=== PATIENT | male | born 1955 | race Caucasian/White ===

== ENCOUNTER 2017-07-24 22:34 | Emergency (ER) | payer OTHER ==
[~2017-07-24] VITALS: Ht 172.7 cm; Wt 82.0 kg
[~2017-07-24 22:34] MED LIST: CETI5SOL PO; EXCETAB; FOLI1 PO; LISI-363 PO; METO25 PO; OMEP20TA PO; SIMV20 PO; SODIPAK2; SULF500T35 PO; SUMA50 PO
[2017-07-24 22:37] VITALS: BP 205/84; PULSE 62; RESP 20; TEMP 97.9; O2SAT 100
[2017-07-24] MEDS ORDERED: SIMV20TA PO (22:46)
[2017-07-24] MEDS ORDERED: OMEP20CA2 PO (22:46)
[2017-07-24] MEDS ORDERED: SODIUM CHLOR 0.9% 1000 ML INJ 1,000 ML IV ONE (22:46)
[2017-07-24] MEDS ORDERED: SULF500T3 PO (22:46)
[2017-07-24] MEDS ORDERED: LISI-515 PO (22:46)
[2017-07-24] MEDS ORDERED: SUMA100T2 PO (22:46)
[2017-07-24] MEDS ORDERED: FOLI800T PO (22:46)
--- NOTE | 2017-07-24 22:51 | PD ---
HPI Chief Complaint: Neuro Symptoms/ Deficits Time Seen by Provider: 22:45 Travel History International Travel<30 days: No Contact w/Intl Traveler<30days: No Traveled to known affect area: No History of Present Illness HPI The patient 62 years old and arrives to the ER with sudden onset right eye blindness. He has a history of decreased visual acuity on the right side and 1 hour prior to ER arrival experienced sudden visual loss. Vision loss painless. He has never had similar symptoms. 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 He has had no temporal cephalgia claudication rash or symptoms consistent with giant cell arteritis. He describes loss of vision as a sudden darkness involving the [id number] on the right side. No other weakness reported. Left eye visual acuity is affected. Patient has no other neurologic complaints offered. He reports a history of "fluttering" in chest and has undergone coronary catheterization in addition to other evaluations however as of yet has not been diagnosed with arrhythmia or heart disease otherwise. PFSH Past Medical History Cardiac Catheterization: Yes Cardiovascular Problems: Yes (HEART FLUTTERING) Hypertension: Yes Migraines: Yes Triglycerides - High: Yes Influenza Vaccination: No Past Surgical History Tonsillectomy: Yes Social History Alcohol Use: Yes (OCCASIONALLY) Tobacco Use: No Substance Use: No Allergies-Medications (Allergen,Severity, Reaction): Coded Allergies: No Known Allergies (Unverified , 09/09/15) Reported Meds & Prescriptions Reported Meds & Active Scripts Active Reported Sumatriptan (Sumatriptan Succinate) 100 Mg Tab 100 Mg PO ONCE PRN If a satisfactory response has not been obtained at 2 hours, a second dose may be administered Folic Acid 0.8 Mg Tab 1,000 Mcg PO DAILY Sulfasalazine 500 Mg Tab 500 Mg PO Q8H Lisinopril 20 Mg Tab 20 Mg PO DAILY Simvastatin 20 Mg Tab 20 Mg PO DAILY Omeprazole 20 Mg Cap 20 Mg PO DAILY Review of Systems Except as stated in HPI: all other systems reviewed are Neg Physical Exam Narrative GENERAL: 62-year-old male well-nourished well-developed mildly anxious Vital Signs Date Time Temp Pulse Resp B/P (MAP) Pulse Ox O2 Delivery O2 Flow Rate FiO2 07/25/17 01:26 07/24/17 23:07 69 17 150/72 (98) 100 2.00 07/24/17 23:00 100 2.00 07/24/17 23:00 100 2.00 07/24/17 22:49 99 Room Air 07/24/17 22:37 97.9 62 20 205/84 (124) 100 SKIN: Warm and dry. HEAD: Atraumatic. Normocephalic. EYES: Visual acuity in the right side is absent. The patient cannot count fingers. Left eye visual acuity is normal. Pupils are equal round reactive to light. Upon funduscopic evaluation of the right either appears to be some findings potentially consistent with central retinal artery occlusion. Disconjugate gaze observed. ENT: No nasal bleeding or discharge. Mucous membranes pink and moist. NECK: Trachea midline. No JVD. CARDIOVASCULAR: Regular rate and rhythm. RESPIRATORY: No accessory muscle use. Clear to auscultation. Breath sounds equal bilaterally. GASTROINTESTINAL: Abdomen soft, non-tender, nondistended. Hepatic and splenic margins not palpable. MUSCULOSKELETAL: Extremities without clubbing, cyanosis, or edema. No obvious deformities. NEUROLOGICAL: Speech memory mentation mentation normal. Cranial nerves II through XII normal. Pupils equal round reactive to light. Disconjugate gaze noted. Motor function normal in the upper and lower extremities. PSYCHIATRIC: Appropriate mood and affect; insight and judgment normal. Data Data Last Documented VS Vital Signs Date Time Temp Pulse Resp B/P (MAP) Pulse Ox O2 Delivery O2 Flow Rate FiO2 07/25/17 01:26 07/24/17 23:07 69 17 100 2.00 07/24/17 22:49 Room Air 07/24/17 22:37 97.9 Orders Orders Activity Bed Rest (07/24/17 ) Electrocardiogram (07/24/17 ) I-Stat Profile (07/24/17 22:46) Prothrombin Time / Inr (Pt) (07/24/17 22:46) Act Partial Throm Time (Ptt) (07/24/17 22:46) Complete Blood Count With Diff (07/24/17 22:46) Fibrinogen (07/24/17 22:46) Creatine Kinase (Cpk) (07/24/17 22:46) Troponin I (07/24/17 22:46) Ua Includes Microscopic (07/24/17 22:46) Drug Screen, Random Urine (07/24/17 22:46) Type And Screen (07/24/17 22:46) Ct Brain W/O Iv Contrast(Rout) (07/24/17 ) Consult Neurology (07/24/17 ) Blood Glucose (07/24/17 22:46) Ecg Monitoring (07/24/17 22:46) Neuro Checks Q2HX12,Q4H (07/24/17 22:46) Nursing Bedside Swallow Assess .ONCE (07/24/17 22:46) Iv Access Insert/Monitor (07/24/17 22:46) NPO (07/24/17 22:46) Oximetry (07/24/17 22:46) Resp Oxygen Nc Stroke (07/24/17 ) Sodium Chlor 0.9% 1000 Ml Inj (Ns 1000 M (07/24/17 22:46) Cath For Specimen (07/24/17 22:46) (Hub Use Only)Inp Phy Cons/Ref (07/24/17 ) Westergren Sedimentation Rate (07/24/17 22:57) C-Reactive Protein (Crp) (07/24/17 22:57) Ed Discharge Order (07/25/17 00:57) Labs Laboratory Tests Test 07/24/17 22:50 07/24/17 22:54 07/24/17 23:00 Erythrocyte Sedimentation Rate 9 mm/hr White Blood Count 8.7 TH/MM3 Red Blood Count 4.41 MIL/MM3 Hemoglobin 12.6 GM/DL Bedside Hemoglobin 12.6 G/DL Hematocrit 38.6 % Bedside Hematocrit 37.0 % Mean Corpuscular Volume 87.5 FL Mean Corpuscular Hemoglobin 28.6 PG Mean Corpuscular Hemoglobin Concent 32.6 % Red Cell Distribution Width 15.2 % Platelet Count 278 TH/MM3 Mean Platelet Volume 8.8 FL Neutrophils (%) (Auto) 52.3 % Lymphocytes (%) (Auto) 33.2 % Monocytes (%) (Auto) 11.0 % Eosinophils (%) (Auto) 2.4 % Basophils (%) (Auto) 1.1 % Neutrophils # (Auto) 4.6 TH/MM3 Lymphocytes # (Auto) 2.9 TH/MM3 Monocytes # (Auto) 1.0 TH/MM3 Eosinophils # (Auto) 0.2 TH/MM3 Basophils # (Auto) 0.1 TH/MM3 CBC Comment DIFF FINAL Differential Comment Prothrombin Time 10.4 SEC Prothromb Time International Ratio 1.0 RATIO Activated Partial Thromboplast Time 26.0 SEC Fibrinogen 278 mg/dL Bedside Sodium 140 MMOL/L Bedside Potassium 3.8 MMOL/L Bedside Chloride 102 MMOL/L Bedside Blood Urea Nitrogen 23 MG/DL Bedside Creatinine 1.2 MG/DL Bedside Glucose 100 MG/DL Total Creatine Kinase 125 U/L Troponin I LESS THAN 0.02 NG/ML C-Reactive Protein LESS THAN 0.29 MG/DL Urine Color YELLOW Urine Turbidity CLEAR Urine pH 6.0 Urine Specific Watts 1.005 Urine Protein NEG mg/dL Urine Glucose (UA) NEG mg/dL Urine Ketones NEG mg/dL Urine Occult Blood NEG Urine Nitrite NEG Urine Bilirubin NEG Urine Urobilinogen LESS THAN 2.0 MG/DL Urine Leukocyte Esterase NEG Urine RBC LESS THAN 1 /hpf Urine WBC LESS THAN 1 /hpf Urine Opiates Screen NEG Urine Barbiturates Screen NEG Urine Amphetamines Screen NEG Urine Benzodiazepines Screen NEG Urine Cocaine Screen NEG Urine Cannabinoids Screen NEG MDM Medical Screen Exam Complete: Yes Emergency Medical Condition: Yes Differential Diagnosis Retinal injury, stroke, central retinal artery occlusion, central retinal vein occlusion Narrative Course Case discussed with neurology and ophthalmology. 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 No evidence of giant cell arteritis. CBC & BMP Diagram 07/24/17 22:[address] 07/24/17 0000 Signed Impressions: Service Date/Time: Monday, July 24, 2017 22:56 - CONCLUSION: No acute disease. Peter Watson Jr., MD point of CARE electrolytes are essentially unremarkable The C-reactive protein is less than 0.29 ESR is 9 Urinalysis shows no UTI EKG shows sinus rhythm with no ischemic injury pattern preexcitation pattern Patient will be discharged plan to follow with Dr. Perez tomorrow. He reports a return of visual acuity about 45 minutes after ER arrival. Critical Care Narrative Aggregate critical care time was 35 minutes. Time to perform other separately billable procedures was not included in the critical care time. My time did not include minutes spent treating any other patients simultaneously or on activities that did not directly contribute to the patient's treatment. The services I provided to this patient were to treat and/or prevent clinically significant deterioration that could result in: Permanent vision loss, permanent neurologic deficit I provided critical care services requiring my management, as noted below: Chart data review, documentation time, medication orders and management, vital sign assessments/reviewing monitor data, ordering and reviewing lab tests, ordering and interpreting/reviewing x-rays and diagnostic studies, care of the patient and discussion of the patient with the admitting physicians. Stroke Alert NIHSS NIH Stroke Scale Result: 1 NIHSS Time Completed: 22:46 Thrombolytic Contraindications Contraindications: Refusal of Treatment Diagnosis Diagnosis: Primary Impression: Transient visual loss of right eye Referrals: Maira Perez MD 1 day Med/Other Pt SpecificInfo: No Change to Meds Disposition: 01 DISCHARGE HOME Condition: Stable Greg Boss MD Jul 24, 2017 22:51
[2017-07-24 23:00] VITALS: O2SAT 100
[2017-07-24 23:06] LABS: AUTOMATED NEUTROPHIL # 4.6 TH/MM3 (1.8-7.7); BASOPHIL # 0.1 TH/MM3 (0-0.2); BASOPHIL % 1.1 % (0.0-2.0); EOSINOPHIL # 0.2 TH/MM3 (0-0.4); EOSINOPHIL % 2.4 % (0.0-4.0); HEMATOCRIT 38.6 % (39.0-51.0); HEMOGLOBIN 12.6 GM/DL (13.0-17.0); LYMPH % 33.2 % (9.0-44.0); LYMPHOCYTE # 2.9 TH/MM3 (1.0-4.8); MEAN CELL VOLUME 87.5 FL (80.0-100.0); MEAN CORPUSCULAR HEMOGLOBIN 28.6 PG (27.0-34.0); MEAN CORPUSCULAR HGB CONC 32.6 % (32.0-36.0); MEAN PLATELET VOLUME 8.8 FL (7.0-11.0); NEUT % 52.3 % (16.0-70.0); PLATELET COUNT 278 TH/MM3 (150-450); RED BLOOD COUNT 4.41 MIL/MM3 (4.50-5.90); RED CELL DISTRIBUTION WIDTH 15.2 % (11.6-17.2); WHITE BLOOD COUNT 8.7 TH/MM3 (4.0-11.0)
[2017-07-24 23:07] VITALS: BP 150/72; PULSE 69; RESP 17; O2SAT 100
--- NOTE | 2017-07-24 23:07 | RADRPT ---
EXAM DATE/TIME: 07/24/2017 22:56 [facility] COMPARISON: No previous studies available for comparison. INDICATIONS : Stroke alert; right side vision changes for one hour. RADIATION DOSE: 64.63 CTDIvol (mGy) This report was called by Dr Watson to Dr Boss at 2305 MEDICAL HISTORY : Hypertension. Cardiovascular disease SURGICAL HISTORY : None. ENCOUNTER: Initial ACUITY: 1 day PAIN SCALE: 0/10 LOCATION: cranial TECHNIQUE: Multiple contiguous axial images were obtained of the head. Using automated exposure control and adj ustment of the mA and/or kV according to patient size, radiation dose was kept as low as reasonably a chievable to obtain optimal diagnostic quality images. DICOM format image data is available electro nically for review and comparison. FINDINGS: CEREBRUM: The ventricles are normal for age. No evidence of midline shift, mass lesion, hemorrhage or acute in farction. No extra-axial fluid collections are seen. POSTERIOR FOSSA: The cerebellum and brainstem are intact. The 4th ventricle is midline. The cerebellopontine angle i s unremarkable. EXTRACRANIAL: The visualized portion of the orbits is intact. SKULL: The calvaria is intact. No evidence of skull fracture. CONCLUSION: No acute disease. Peter Watson Jr., MD on July 24, 2017 at 23:04 Board Certified Radiologist. This report was verified electronically.
[2017-07-24 23:14] LABS: PROTHROMBIN TIME - PATIENT 10.4 SEC (9.8-11.6)
[2017-07-24 23:23] LABS: TROPONIN I LESS THAN 0.02 NG/ML (0.02-0.05)
[2017-07-24 23:45] LABS: BILIRUBIN, URINE NEG (NEG); BLOOD, URINE NEG (NEG); GLUCOSE,URINE NEG (NEG); KETONE, URINE NEG (NEG); NITRITE,URINE NEG (NEG); URINE COLOR YELLOW (YELLW/STRAW); URINE LEUKOCYTE ESTERASE NEG (NEG)
--- NOTE | 2017-07-25 23:31 | EKG ---
Date Performed: 07/24/2017 Time Performed: 22:37:13 PTAGE: 62 years EKG: Sinus rhythm BORDERLINE LEFT AXIS DEVIATION BORDERLINE ECG NO PREVIOUS TRACING DOCTOR: Harry Duran Interpretating Date/Time 07/25/2017 23:28:04
== END 2017-07-25 01:42 | disposition home or self-care (01) ==
LOC: NEPC 22:34
DX: H53.121 Transient visual loss, right eye (principal); I10 Essential (primary) hypertension; Z79.899 Other long term (current) drug therapy
CPT/HCPCS: 70450; 80048; 80307; 81001; 82550; 84484; 85025; 85384; 85610; 85652; 85730; 86140; 86850; 86900; 86901; 93005; 99291; J7030

== ENCOUNTER 2017-08-15 17:51 | Emergency (ER) | payer OTHER ==
[~2017-08-15] VITALS: Ht 172.7 cm; Wt 81.8 kg
[~2017-08-15 17:51] MED LIST changes: -CETI5SOL PO; -EXCETAB; -FOLI1 PO; +FOLI800T PO; -LISI-363 PO; +LISI-515 PO; -METO25 PO; +OMEP20CA2 PO; -OMEP20TA PO; -SIMV20 PO; +SIMV20TA PO; -SODIPAK2; +SULF500T3 PO; -SULF500T35 PO; +SUMA100T2 PO; -SUMA50 PO
--- NOTE | 2017-08-15 18:20 | PD ---
HPI Chief Complaint: palpitations Time Seen by Provider: 18:19 Travel History International Travel<30 days: No Contact w/Intl Traveler<30days: No Traveled to known affect area: No History of Present Illness HPI 62-year-old male presents emergency department for evaluation of palpitations. Patient is currently under the care of analytical chemist Dr. Damon. He is in an event monitor and has been for the last 2 weeks. Patient states that he gets palpitations and feels like his heart is racing frequently. When this happens sometimes he gets a little lightheaded or nauseous. But it is short lived and the patient is able to go on about his stay. Patient was here in the hospital approximately 2 weeks ago following an incident where he lost vision in his right eye but this resolved on its own. Patient states today he began having a racing heartbeat and feeling palpitations. He thinks it lasted for the duration of clinical program consultant duty which is about 30 minutes. He states during that time he felt like maybe he was losing vision in his right eye, but this also resolved. He denies any other focal deficits weakness. No nausea vomiting. No pain. No other symptoms to report. He is currently having no symptoms at all. PFSH Past Medical History Cardiac Catheterization: Yes Cardiovascular Problems: Yes (HEART FLUTTERING) Gastrointestinal Disorders: Yes (COLITIS) Hypertension: Yes Migraines: Yes Triglycerides - High: Yes Past Surgical History Tonsillectomy: Yes Social History Alcohol Use: Yes (OCCASIONALLY) Tobacco Use: No Substance Use: No Allergies-Medications (Allergen,Severity, Reaction): Coded Allergies: No Known Allergies (Verified Adverse Reaction, Unknown, 08/15/17) Reported Meds & Prescriptions Reported Meds & Active Scripts Active Reported Sumatriptan (Sumatriptan Succinate) 100 Mg Tab 100 Mg PO ONCE PRN If a satisfactory response has not been obtained at 2 hours, a second dose may be administered Folic Acid 0.8 Mg Tab 1,000 Mcg PO DAILY Sulfasalazine 500 Mg Tab 500 Mg PO Q8H Lisinopril 20 Mg Tab 20 Mg PO DAILY Simvastatin 20 Mg Tab 20 Mg PO DAILY Omeprazole 20 Mg Cap 20 Mg PO DAILY Review of Systems Except as stated in HPI: all other systems reviewed are Neg Physical Exam Narrative GENERAL: Well-nourished male patient, in no acute distress. SKIN: Focused skin assessment warm/dry. HEAD: Atraumatic. Normocephalic. EYES: Pupils equal and round. No scleral icterus. No injection or drainage. ENT: No nasal bleeding or discharge. Mucous membranes pink and moist. NECK: Trachea midline. No JVD. CARDIOVASCULAR: Regular rate and rhythm. RESPIRATORY: No accessory muscle use. Clear to auscultation. Breath sounds equal bilaterally. GASTROINTESTINAL: Abdomen soft, non-tender, nondistended. Hepatic and splenic margins not palpable. MUSCULOSKELETAL: No obvious deformities. No clubbing. No cyanosis. No edema. NEUROLOGICAL: Awake and alert. No obvious cranial nerve deficits. Motor grossly within normal limits. Normal speech. PSYCHIATRIC: Appropriate mood and affect; insight and judgment normal. Data Data Last Documented VS Vital Signs Date Time Temp Pulse Resp B/P (MAP) Pulse Ox O2 Delivery O2 Flow Rate FiO2 08/15/17 20:50 78 20 98 08/15/17 18:37 Room Air 08/15/17 18:25 98.0 138/84 (102) Orders Orders Electrocardiogram (08/15/17 18:19) Basic Metabolic Panel (Bmp) (08/15/17 18:19) Complete Blood Count With Diff (08/15/17 18:19) Magnesium (Mg) (08/15/17 18:19) Prothrombin Time / Inr (Pt) (08/15/17 18:19) Act Partial Throm Time (Ptt) (08/15/17 18:19) Ecg Monitoring (08/15/17 18:19) Bilateral Bp Monitoring (08/15/17 18:19) Iv Access Insert/Monitor (08/15/17 18:19) Oximetry (08/15/17 18:19) Oxygen Administration (08/15/17 18:19) Sodium Chloride 0.9% Flush (Ns Flush) (08/15/17 18:30) Ed Discharge Order (08/15/17 20:33) Labs Laboratory Tests Test 08/15/17 18:45 White Blood Count 8.1 TH/MM3 Red Blood Count 4.83 MIL/MM3 Hemoglobin 13.6 GM/DL Hematocrit 40.8 % Mean Corpuscular Volume 84.6 FL Mean Corpuscular Hemoglobin 28.1 PG Mean Corpuscular Hemoglobin Concent 33.2 % Red Cell Distribution Width 15.6 % Platelet Count 285 TH/MM3 Mean Platelet Volume 8.9 FL Neutrophils (%) (Auto) 61.3 % Lymphocytes (%) (Auto) 23.5 % Monocytes (%) (Auto) 12.7 % Eosinophils (%) (Auto) 1.6 % Basophils (%) (Auto) 0.9 % Neutrophils # (Auto) 4.9 TH/MM3 Lymphocytes # (Auto) 1.9 TH/MM3 Monocytes # (Auto) 1.0 TH/MM3 Eosinophils # (Auto) 0.1 TH/MM3 Basophils # (Auto) 0.1 TH/MM3 CBC Comment DIFF FINAL Differential Comment Prothrombin Time 10.6 SEC Prothromb Time International Ratio 1.0 RATIO Activated Partial Thromboplast Time 24.5 SEC Blood Urea Nitrogen 19 MG/DL Creatinine 1.08 MG/DL Random Glucose 96 MG/DL Calcium Level 8.7 MG/DL Magnesium Level 2.3 MG/DL Sodium Level 139 MEQ/L Potassium Level 4.0 MEQ/L Chloride Level 107 MEQ/L Carbon Dioxide Level 26.0 MEQ/L Anion Gap 6 MEQ/L Estimat Glomerular Filtration Rate 69 ML/MIN MDM Medical Decision Making Medical Screen Exam Complete: Yes Emergency Medical Condition: Yes Medical Record Reviewed: Yes Differential Diagnosis Electrolyte abnormality versus arrhythmia versus anxiety Narrative Course 62-year-old male presents emergency department for evaluation patient appears without distress. He is currently not having any symptoms. Patient is already under the care of a analytical chemist for these episodes of racing heartbeat/ palpitations. I discussed with my attending physician. We will recheck patient 's basic lab work to ensure no acute electrolyte abnormality. EKG is complete and reviewed by my attending with no acute ST elevation or depression. Laboratory Tests Test 08/15/17 18:45 White Blood Count 8.1 TH/MM3 Red Blood Count 4.83 MIL/MM3 Hemoglobin 13.6 GM/DL Hematocrit 40.8 % Mean Corpuscular Volume 84.6 FL Mean Corpuscular Hemoglobin 28.1 PG Mean Corpuscular Hemoglobin Concent 33.2 % Red Cell Distribution Width 15.6 % Platelet Count 285 TH/MM3 Mean Platelet Volume 8.9 FL Neutrophils (%) (Auto) 61.3 % Lymphocytes (%) (Auto) 23.5 % Monocytes (%) (Auto) 12.7 % Eosinophils (%) (Auto) 1.6 % Basophils (%) (Auto) 0.9 % Neutrophils # (Auto) 4.9 TH/MM3 Lymphocytes # (Auto) 1.9 TH/MM3 Monocytes # (Auto) 1.0 TH/MM3 Eosinophils # (Auto) 0.1 TH/MM3 Basophils # (Auto) 0.1 TH/MM3 CBC Comment DIFF FINAL Differential Comment Prothrombin Time 10.6 SEC Prothromb Time International Ratio 1.0 RATIO Activated Partial Thromboplast Time 24.5 SEC Blood Urea Nitrogen 19 MG/DL Creatinine 1.08 MG/DL Random Glucose 96 MG/DL Calcium Level 8.7 MG/DL Magnesium Level 2.3 MG/DL Sodium Level 139 MEQ/L Potassium Level 4.0 MEQ/L Chloride Level 107 MEQ/L Carbon Dioxide Level 26.0 MEQ/L Anion Gap 6 MEQ/L Estimat Glomerular Filtration Rate 69 ML/MIN Findings are discussed with patient. He is encouraged to call Dr. Damon tomorrow and to return immediately with any acute worsening symptoms Diagnosis Primary Impression: Palpitations Referrals: Tool Crib Manager Primary Care Physician Patient Instructions: General Instructions, Heart Palpitations (ED) Additional Instructions: Continue wearing her event monitor Follow-up with your primary care provider See cardiology evaluation Return immediately with any acute worsening symptoms Med/Other Pt SpecificInfo: No Change to Meds Disposition: 01 DISCHARGE HOME Condition: Stable HumphriesPaty arevalo ANETTE Aug 15, 2017 18:20
[2017-08-15 18:25] VITALS: BP 138/84; PULSE 92; RESP 16; TEMP 98; O2SAT 95
[2017-08-15] MEDS ORDERED: SODIUM CHLORIDE 0.9% FLUSH 10 ML FLUSH IVF PRN (18:30)
[2017-08-15 19:56] LABS: AUTOMATED NEUTROPHIL # 4.9 TH/MM3 (1.8-7.7); BASOPHIL # 0.1 TH/MM3 (0-0.2); BASOPHIL % 0.9 % (0.0-2.0); EOSINOPHIL # 0.1 TH/MM3 (0-0.4); EOSINOPHIL % 1.6 % (0.0-4.0); HEMATOCRIT 40.8 % (39.0-51.0); HEMOGLOBIN 13.6 GM/DL (13.0-17.0); LYMPH % 23.5 % (9.0-44.0); LYMPHOCYTE # 1.9 TH/MM3 (1.0-4.8); MEAN CELL VOLUME 84.6 FL (80.0-100.0); MEAN CORPUSCULAR HEMOGLOBIN 28.1 PG (27.0-34.0); MEAN CORPUSCULAR HGB CONC 33.2 % (32.0-36.0); MEAN PLATELET VOLUME 8.9 FL (7.0-11.0); MONO % 12.7 % (0.0-8.0); NEUT % 61.3 % (16.0-70.0); PLATELET COUNT 285 TH/MM3 (150-450); RED BLOOD COUNT 4.83 MIL/MM3 (4.50-5.90); RED CELL DISTRIBUTION WIDTH 15.6 % (11.6-17.2); WHITE BLOOD COUNT 8.1 TH/MM3 (4.0-11.0)
[2017-08-15 20:13] LABS: CALCIUM 8.7 MG/DL (8.5-10.1); CREATININE 1.08 MG/DL (0.60-1.30); MAGNESIUM 2.3 MG/DL (1.5-2.5)
[2017-08-15 20:26] LABS: PROTHROMBIN TIME - PATIENT 10.6 SEC (9.8-11.6)
--- NOTE | 2017-08-17 11:56 | EKG ---
Date Performed: 08/15/2017 Time Performed: 18:39:05 PTAGE: 62 years EKG: Sinus rhythm WITH FREQUENT VENTRICULAR PREMATURE COMPLEXES BORDERLINE LEFT AXIS DEVIATION ABNORMAL RHYTHM ECG PREVIOUS TRACING : 07/24/2017 22.37 Since the prior tracing, patient has developed frequent uni focal PVCs as a new finding. DOCTOR: Emilee Bagley Interpretating Date/Time 08/17/2017 11:54:02
== END 2017-08-15 21:12 | disposition home or self-care (01) ==
LOC: NEPD 17:51
DX: R00.2 Palpitations (principal); I10 Essential (primary) hypertension; R94.31 Abnormal electrocardiogram [ECG] [EKG]; Z79.899 Other long term (current) drug therapy
CPT/HCPCS: 80048; 83735; 85025; 85610; 85730; 93005; 99284